=== PATIENT | female | born 1980 | race Two or more races ===

== ENCOUNTER 2021-09-11 15:21 | Emergency (ER) | payer BC ==
[~2021-09-11] VITALS: Ht 162.6 cm; Wt 81.6 kg
[2021-09-11 15:44] LABS: Urine WBC None Seen /hpf (0 - 5)
[2021-09-11 15:56] LABS: Urine Bacteria NONE SEEN /hpf (None Seen); Urine Blood Negative /uL (Negative); Urine Specific Gravity 1.021 (1.001-1.035)
[2021-09-11 17:05] VITALS: BP 128/75
[2021-09-11] MEDS ORDERED: KETOROLAC TROMETH 60MG/2ML VIAL IM ONE (17:45)
== END 2021-09-11 18:29 | disposition home or self-care (01) ==
LOC: ER 15:21
DX: M51.36 Other intervertebral disc degeneration, lumbar region (principal); Z98.51 Tubal ligation status
CPT/HCPCS: 72131; 81001; 81025; 96372; 99284; J1885

== ENCOUNTER 2023-11-22 06:18 | Inpatient (IN) | payer BC ==
[~2023-11-22] VITALS: Ht 162.6 cm; Wt 80.1 kg
[2023-11-22 08:25] LABS: Urine Bacteria FEW /hpf (None Seen); Urine Blood Negative /uL (Negative); Urine Clarity Clear (Clear); Urine Color Yellow (Yellow); Urine Hyaline Cast MANY /lpf (0 - 2); Urine Mucus FEW (None Seen); Urine Protein, UAD 1+ (Negative); Urine Specific Gravity 1.031 (1.001-1.035); Urine WBC 1 /hpf (0 - 5)
[2023-11-22 08:39] LABS: Basophils # (auto) 0 10 ^3/uL (0-0.2); Basophils % (auto) 0.1 % (0.0-2.0); Eosinophils # (auto) 0 10 ^3/uL (0-0.8); Eosinophils % (auto) 0.3 % (0.0-7.0); Hematocrit 44.5 % (36.0-46.0); Hemoglobin 14.5 g/dL (12.2-16.2); Lymphocytes % (auto) 17.4 % (10.0-50.0); Mean Corpuscular Hemoglobin 29.2 pg (28.0-32.0); Mean Corpuscular Hgb Conc. 32.5 g/dL (32.0-36.0); Mean Corpuscular Volume 89.8 fL (80.0-100.0); Monocytes # (auto) 0.5 10 ^3/uL (0-1.3); Monocytes % (auto) 3.9 % (0.0-12.0); Neutrophils # (auto) 9.1 10 ^3/uL (1.6-8.6); Neutrophils % (auto) 78.3 % (37.0-80.0); Nucleated Red Blood Cells % 0.1 %; Red Blood Cells 4.96 10^6/uL (4.0-5.20); Red Cell Distribution Width 14.6 % (11.8-14.3); White Blood Cell 11.7 10^3/uL (4.4-10.8)
[2023-11-22 08:56] LABS: INR 1.03 (0.9-1.15); Partial Thromboplastin Time 25.6 SEC (24.5-34.5); Prothrombin Time 10.8 sec (9.3-11.8)
[2023-11-22 09:10] LABS: Alanine Aminotransferase 28 U/L (7-40); Albumin 4.2 g/dL (3.2-4.8); Alkaline Phosphatase 62 U/L (46-116); Anion Gap 5 (5-15); Aspartate Aminotransferase 24 U/L (13-40); BUN/Creatinine Ratio 14.3 (10.0-20.0); Bilirubin, Total 1.2 mg/dL (0.2-1.0); Blood Urea Nitrogen 9 mg/dL (9-23); Carbon Dioxide 28 mmol/L (20-30); Chloride 106 mmol/L (98-107); Glucose 103 mg/dL (74-106); Potassium 3.8 mmol/L (3.5-5.1); Sodium 139 mmol/L (136-145); Total Protein 6.3 g/dL (5.7-8.2)
[2023-11-22 09:23] LABS: Lipase 35 U/L (12-53)
[2023-11-22 09:24] LABS: Magnesium 1.8 mg/dL (1.6-2.6)
[2023-11-22] MEDS: SODIUM CHLORIDE 0.9% 1,000 ML IVB ONE (10:03)
[2023-11-22] MEDS: FAMOTIDINE (10MG/ML) 2ML VL IV ONE ×2 (10:04→19:43)
[2023-11-22] MEDS: diphenhdrAMINE HCL 50 MG/1 ML VL IV ONE ×2 (10:04→19:42)
[2023-11-22] MEDS: methylPREDNISolone SOD SUCC 125 MG/2 ML VL IV ONE ×2 (10:05→19:43)
[2023-11-22] MEDS: KETOROLAC TROMETH 30 MG/ML 1ML VIAL IV ONE (10:05)
[2023-11-22] MEDS: ONDANSETRON ODT 4 MG TAB PO ONE (10:06)
[2023-11-22] MEDS ORDERED: ACETAMINOPHEN 325 MG TAB PO PRN (21:45)
[2023-11-22] MEDS ORDERED: ONDANSETRON HCL 4 MG/2 ML VIAL IV PRN (21:45)
[2023-11-22] MEDS ORDERED: TEMAZEPAM 15 MG CAP PO PRN (21:45)
[2023-11-22] MEDS ORDERED: HYDROcodone-ACET 5/325MG TAB PO PRN (21:45)
[2023-11-22] MEDS: ATORVASTATIN 20 MG TAB PO SCH (22:21)
[2023-11-22] MEDS: FAMOTIDINE (10MG/ML) 2ML VL IV SCH (22:52)
[2023-11-23] MEDS: diphenhdrAMINE HCL 25 MG CAP PO PRN (07:03)
[2023-11-23 07:12] LABS: Basophils # (auto) 0 10 ^3/uL (0-0.2); Basophils % (auto) 0.1 % (0.0-2.0); Eosinophils # (auto) 0 10 ^3/uL (0-0.8); Hematocrit 38.4 % (36.0-46.0); Hemoglobin 12.9 g/dL (12.2-16.2); Lymphocytes # (auto) 1.4 10 ^3/uL (0.4-5.4); Mean Corpuscular Hemoglobin 30.5 pg (28.0-32.0); Mean Corpuscular Hgb Conc. 33.5 g/dL (32.0-36.0); Mean Corpuscular Volume 90.9 fL (80.0-100.0); Monocytes # (auto) 0.2 10 ^3/uL (0-1.3); Monocytes % (auto) 1.7 % (0.0-12.0); Neutrophils # (auto) 7.9 10 ^3/uL (1.6-8.6); Neutrophils % (auto) 83.2 % (37.0-80.0); Red Blood Cells 4.23 10^6/uL (4.0-5.20); Red Cell Distribution Width 14.5 % (11.8-14.3); White Blood Cell 9.5 10^3/uL (4.4-10.8)
[2023-11-23 07:15] LABS: Chloride 107 mmol/L (98-107); Potassium 4.1 mmol/L (3.5-5.1); Sodium 140 mmol/L (136-145)
[2023-11-23 07:16] LABS: Anion Gap 7 (5-15); Carbon Dioxide 26 mmol/L (20-30)
[2023-11-23 07:17] LABS: Calcium 8.8 mg/dL (8.5-10.1)
[2023-11-23 07:21] LABS: Glucose 134 mg/dL (74-106)
[2023-11-23 07:22] LABS: BUN/Creatinine Ratio 20.3 (10.0-20.0); Blood Urea Nitrogen 12 mg/dL (9-23)
[2023-11-23 08:34] VITALS: RESP 18; O2SAT 96
[2023-11-23 12:00] VITALS: BP 120/71; PULSE 73; RESP 16; TEMP 98.3; O2SAT 98
[2023-11-23 12:07] VITALS: BP_SYST 120; BP_SYST 71; BP_DIAS 71; PULSE 73; RESP 16; TEMP 98.3; O2SAT 98
[2023-11-23] MEDS ORDERED: ATOR20TA50 PO (12:45)
[2023-11-23] MEDS ORDERED: IBUP-1455 PO (12:45)
[2023-11-23] MEDS ORDERED: OMEG600C2 PO (12:46)
[2023-11-23 13:58] LABS: Hepatitis B Surface Antigen Negative (Negative)
[2023-11-23 14:19] LABS: Hepatitis C Antibody Negative (Negative)
[2023-11-23] MEDS: PANTOPRAZOLE 40 MG TAB PO ONE (15:04)
[2023-11-23 16:00] VITALS: BP 104/58; PULSE 67; RESP 16; TEMP 97.8; O2SAT 99
[2023-11-23 20:00] VITALS: PULSE 64; O2SAT 98
[2023-11-23 22:00] VITALS: BP 112/67; PULSE 64; RESP 18; TEMP 98.7; O2SAT 98
[2023-11-24] VITALS (11 sets, daily range): BP systolic 97–107; BP diastolic 60–71; PULSE 56–69; RESP 14–16; TEMP 36.9; O2SAT 95–100
[2023-11-24] MEDS ORDERED: SODIUM CHLORIDE LOCK 10 ML ONE (09:23)
[2023-11-24] MEDS ORDERED: LIDOCAINE VISCOUS 2% 15ML UD ONE (09:23)
[2023-11-24] MEDS ORDERED: fentaNYL CITRATE 100 MCG/2 ML VL ONE (09:24)
[2023-11-24] MEDS ORDERED: MIDAZOLAM HCL 5 MG/ML-1ML VIAL ONE (09:24)
[2023-11-24] MEDS ORDERED: diphenhdrAMINE HCL 50 MG/1 ML VL ONE (09:24)
[2023-11-24] MEDS: PANTOPRAZOLE 40 MG TAB PO SCH ×2 (10:00→21:57)
[2023-11-24] MEDS: SUCRALFATE 1 GM/10 ML ORAL SUSP PO SCH (18:03)
[2023-11-25] VITALS (7 sets, daily range): BP systolic 97–137; BP diastolic 62–72; PULSE 57–99; RESP 16–18; TEMP 36.9; O2SAT 95–97
[2023-11-25 07:47] LABS: Basophils # (auto) 0 10 ^3/uL (0-0.2); Basophils % (auto) 0.1 % (0.0-2.0); Eosinophils # (auto) 0.2 10 ^3/uL (0-0.8); Eosinophils % (auto) 2.7 % (0.0-7.0); Hematocrit 37.6 % (36.0-46.0); Hemoglobin 12.5 g/dL (12.2-16.2); Lymphocytes # (auto) 3.3 10 ^3/uL (0.4-5.4); Lymphocytes % (auto) 44.8 % (10.0-50.0); Mean Corpuscular Hgb Conc. 33.3 g/dL (32.0-36.0); Mean Corpuscular Volume 90.2 fL (80.0-100.0); Monocytes # (auto) 0.3 10 ^3/uL (0-1.3); Monocytes % (auto) 4.5 % (0.0-12.0); Neutrophils # (auto) 3.5 10 ^3/uL (1.6-8.6); Neutrophils % (auto) 47.9 % (37.0-80.0); Nucleated Red Blood Cells % 0.1 %; Red Blood Cells 4.16 10^6/uL (4.0-5.20); Red Cell Distribution Width 14.4 % (11.8-14.3); White Blood Cell 7.3 10^3/uL (4.4-10.8)
[2023-11-25 08:06] LABS: Alanine Aminotransferase 26 U/L (7-40); Albumin 3.6 g/dL (3.2-4.8); Alkaline Phosphatase 60 U/L (46-116); Anion Gap 7 (5-15); Aspartate Aminotransferase 22 U/L (13-40); BUN/Creatinine Ratio 10.9 (10.0-20.0); Bilirubin, Total 0.7 mg/dL (0.2-1.0); Blood Urea Nitrogen 7 mg/dL (9-23); Calcium 8.8 mg/dL (8.5-10.1); Carbon Dioxide 29 mmol/L (20-30); Chloride 105 mmol/L (98-107); Glucose 80 mg/dL (74-106); Sodium 141 mmol/L (136-145)
[2023-11-25 08:07] LABS: Total Protein 5.8 g/dL (5.7-8.2)
[2023-11-25] MEDS ORDERED: SUCR1SUS26 PO (11:16)
[2023-11-25] MEDS ORDERED: PANT40T PO (11:16)
[2023-11-26 05:00] VITALS: BP 105/71; PULSE 55; RESP 16; TEMP 98.2; O2SAT 96
[2023-11-26 07:19] LABS: Basophils # (auto) 0 10 ^3/uL (0-0.2); Basophils % (auto) 0.1 % (0.0-2.0); Eosinophils # (auto) 0.3 10 ^3/uL (0-0.8); Eosinophils % (auto) 3.7 % (0.0-7.0); Hematocrit 41.1 % (36.0-46.0); Hemoglobin 13.5 g/dL (12.2-16.2); Lymphocytes # (auto) 3.1 10 ^3/uL (0.4-5.4); Lymphocytes % (auto) 43.4 % (10.0-50.0); Mean Corpuscular Hemoglobin 29.6 pg (28.0-32.0); Mean Corpuscular Hgb Conc. 32.8 g/dL (32.0-36.0); Mean Corpuscular Volume 90.2 fL (80.0-100.0); Monocytes # (auto) 0.4 10 ^3/uL (0-1.3); Neutrophils # (auto) 3.4 10 ^3/uL (1.6-8.6); Neutrophils % (auto) 46.8 % (37.0-80.0); Nucleated Red Blood Cells % 0.1 %; Red Blood Cells 4.56 10^6/uL (4.0-5.20); Red Cell Distribution Width 14.2 % (11.8-14.3); White Blood Cell 7.2 10^3/uL (4.4-10.8)
[2023-11-26 07:55] LABS: Alanine Aminotransferase 23 U/L (7-40); Albumin 3.8 g/dL (3.2-4.8); Alkaline Phosphatase 64 U/L (46-116); Anion Gap 6 (5-15); BUN/Creatinine Ratio 16.9 (10.0-20.0); Blood Urea Nitrogen 11 mg/dL (9-23); Calcium 8.8 mg/dL (8.7-10.4); Carbon Dioxide 28 mmol/L (20-30); Chloride 106 mmol/L (98-107); Glucose 86 mg/dL (74-106); Potassium 4.1 mmol/L (3.5-5.1); Sodium 140 mmol/L (136-145)
[2023-11-26 07:56] LABS: Aspartate Aminotransferase 19 U/L (13-40); Bilirubin, Total 0.5 mg/dL (0.2-1.0); Total Protein 6.2 g/dL (5.7-8.2)
[2023-11-26 08:00] VITALS: PULSE 60; RESP 17
[2023-11-26 09:00] VITALS: BP 97/47; PULSE 63; RESP 16; TEMP 97.4; O2SAT 94
[2023-11-26 11:45] VITALS: TEMP 36.3
[2023-11-26 13:00] VITALS: BP 108/67; PULSE 61; RESP 18; TEMP 97.3; O2SAT 100
== END 2023-11-26 13:10 | disposition home or self-care (01) | DRG 384 ==
LOC: ER 06:18 → OVERFLOW 21:47 → WEST WING 11-23 11:54
PROVIDERS: ADMIT Nurse Practitioner; ATTEND Internal Medicine
PROC: 0DB68ZX Excision of Stomach, Via Natural or Artificial Opening Endoscopic, Diagnostic (ICD-10-PCS; 2023-11-24)
PROC: 0DB98ZX Excision of Duodenum, Via Natural or Artificial Opening Endoscopic, Diagnostic (ICD-10-PCS; principal; 2023-11-24 15:25)
DX: K26.9 Duodenal ulcer, unspecified as acute or chronic, without hemorrhage or perforation (principal); K29.70 Gastritis, unspecified, without bleeding; K29.80 Duodenitis without bleeding; K25.9 Gastric ulcer, unspecified as acute or chronic, without hemorrhage or perforation; R13.10 Dysphagia, unspecified; E78.5 Hyperlipidemia, unspecified; K44.9 Diaphragmatic hernia without obstruction or gangrene; E66.9 Obesity, unspecified; Z79.899 Other long term (current) drug therapy; Z68.30 Body mass index [BMI] 30.0-30.9, adult
CPT/HCPCS: 36415; 43239; 76705; 80048; 80053; 81001; 83690; 83735; 84702; 85025; 85610; 85730; 86803; 87340; 93005; G0378; J1885; J2250; J3490; Q0162